=== PATIENT | male | born 1955 | race Caucasian/White ===

== ENCOUNTER 2017-06-11 02:57 | Emergency (ER) | payer BC ==
[~2017-06-11] VITALS: Ht 170.2 cm; Wt 97.1 kg
[~2017-06-11 02:57] MED LIST: INCIVEK375 MG; LOSARTAN POTAS100 MG PO; LOSARTAN POTASS25 MG; NEXIUM20 MG PO; RIBASPHERE600 MG
[2017-06-11] MEDS ORDERED: SODIUM CHLORIDE 0.9% 1000ML 1,000 ML IV STA (03:13)
[2017-06-11] MEDS ORDERED: MORPHINE SULFATE 2 MG/ML SYR IV STA (03:13)
[2017-06-11] MEDS ORDERED: KETOROLAC TROMETHAMINE 30 MG/ML VIAL IV STA (03:13)
[2017-06-11] MEDS ORDERED: ONDANSETRON HCL INJ 2 MG/ML VIAL IV STA (03:13)
[2017-06-11] MEDS ORDERED: PANTOPRAZOLE 40 MG 10ML VIAL IV STA (03:13)
[2017-06-11 03:25] LABS: BASOPHILS % 0.6 % (0.0-1.0); BILIRUBIN,URINE NEGATIVE (NEGATIVE); CLARITY,URINE CLOUDY (CLEAR); COLOR,URINE AMBER (YELLOW); EOSINOPHILS # (AUTO) 0.4 (0.0-0.4); EOSINOPHILS % 5.3 % (0.0-6.0); HEMOGLOBIN 15.2 g/dL (14.0-18.0); KETONES,URINE NEGATIVE (NEGATIVE); LEUKOCYTE ESTERASE ,URINE NEGATIVE (NEGATIVE); LYMPHOCYTES # (AUTO) 1.2 (1.0-3.2); LYMPHOCYTES % 17.9 % (18.0-39.1); MEAN CORPUSCULAR HGB CONC 34.5 g/dL (31-35); MEAN CORPUSCULAR VOLUME 98.4 fL (81-99); MONOCYTES # (AUTO) 0.6 (0.2-0.8); MONOCYTES % 8.5 % (4.4-11.3); NEUTROPHILS # (AUTO) 4.7 (2.1-6.9); NEUTROPHILS % 67.3 % (38.7-80.0); NITRITE,URINE NEGATIVE (NEGATIVE); PLATELET COUNT 148 x10e3/uL (140-360); PROTEIN,URINE DIPSTICK NEGATIVE (NEGATIVE); RED BLOOD COUNT 4.47 x10e6/uL (4.3-5.7); RED CELL DISTRIBUTION WIDTH 12.6 % (11.7-14.4); URINE UROBILINOGEN 0.2 mg/dL (0.2 - 1)
[2017-06-11 03:30] LABS: BACTERIA,URINE FEW /HPF; EPITHELIAL CELLS,URINE RARE /LPF; RBC,URINE >50 /HPF (0-5)
[2017-06-11 03:34] LABS: INR 1.09; PROTHROMBIN TIME 13.3 seconds (11.9-14.5)
[2017-06-11 03:45] LABS: ALANINE AMINOTRANSFERASE 9 IU/L (0-55); ALBUMIN 4.1 g/dL (3.5-5.0); ALBUMIN/GLOBULIN RATIO 1.2 (0.8-2.0); ALKALINE PHOSPHATASE 87 IU/L (40-150); AMYLASE 92 U/L (25-125); ANION GAP 13.5 mmol/L (8-16); BLOOD UREA NITROGEN 16 mg/dL (7-26); BUN/CREATININE RATIO 17 (6-25); CALCIUM 9.1 mg/dL (8.4-10.2); CARBON DIOXIDE 24 mmol/L (22-29); CHLORIDE 106 mmol/L (98-107); CREATINE KINASE 235 IU/L (30-200); CREATININE, SERUM 0.95 mg/dL (0.72-1.25); EST GLOMERULAR FILTRATION RATE > 60 ML/MIN (60-); GLUCOSE 116 mg/dL (74-118); LIPASE 57 U/L (8-78); MAGNESIUM 2.1 MG/DL (1.3-2.1); POTASSIUM 3.5 mmol/L (3.5-5.1); SODIUM 140 mmol/L (136-145)
--- NOTE | 2017-06-11 04:09 | Diagnostic Imaging Report ---
EXAM: CT ABDOMEN/PELVIS WO DATE: 06/11/2017 3:13 AM INDICATION: Right flank pain COMPARISON: None TECHNIQUE: The abdomen and pelvis were scanned using a multidetector helical scanner. Coronal and sagittal reformations were obtained. Routine protocol performed. IV Contrast: None FINDINGS: Lack of IV contrast decreases sensitivity in evaluating abdominal and pelvic organs. LOWER THORAX: No consolidations LIVER/BILIARY: Liver is nodular contour suggesting cirrhosis/chronic liver disease. Low-density liver lesions, likely cysts. No ductal dilatation. GALLBLADDER: Cholelithiasis. SPLEEN: Not enlarged. PANCREAS: Unremarkable ADRENALS: No nodules KIDNEYS: There are several left renal simple appearing cystic lesions. Nonobstructing 6 mm right inferior renal calculus. Mild right hydroureteronephrosis related to a 3 mm distal right ureteral calculus near the UVJ. GI TRACT: Diverticulosis with thickening of the sigmoid colon. Subtle stranding is seen adjacent to the sigmoid on image 138, 131. Normal appendix. VESSELS: Splenorenal shunt. Atherosclerotic calcifications. PERITONEUM/RETROPERITONEUM: No free air or fluid LYMPH NODES: No lymphadenopathy REPRODUCTIVE ORGANS/BLADDER: Unremarkable SOFT TISSUES: Unremarkable BONES: No suspicious bone lesions. IMPRESSION: 1. Right distal ureteral calculus (3 mm) with mild right hydroureteronephrosis. 2. Subtle inflammatory changes about the sigmoid colon, which may be related to recent, prior or early diverticulitis. Underlying sigmoid thickening, likely chronic diverticular change. Correlate with colonoscopy. 3. Cirrhosis with splenorenal shunt. Signed by: Dr Yessy Burnett MD on 06/11/2017 4:06 AM
[2017-06-11 04:47] VITALS: BP 164/102
== END 2017-06-11 04:54 | disposition home or self-care (01) ==
LOC: ER 02:57
DX: R10.31 Right lower quadrant pain (principal); N30.91 Cystitis, unspecified with hematuria
CPT/HCPCS: 36415; 74176; 80053; 81001; 82150; 82550; 82553; 83690; 83735; 84484; 85025; 85610; 85730; 87086; 99284; J1885; J2270; J2405; J7030